=== PATIENT | female | born 1980 | race Caucasian/White ===

== ENCOUNTER 2021-02-06 17:11 | Emergency (ER) | payer OTHER ==
[~2021-02-06] VITALS: Ht 160 cm; Wt 61.4 kg
[2021-02-06 17:27] VITALS: BP 117/49
[2021-02-06] MEDS ORDERED: ALPR0.5T8 PO (17:27)
[2021-02-06] MEDS ORDERED: METH10 PO (17:27)
== END 2021-02-06 18:25 | disposition home or self-care (01) ==
LOC: EMS 17:11
DX: F13.10 Sedative, hypnotic or anxiolytic abuse, uncomplicated (principal); F41.9 Anxiety disorder, unspecified; F17.210 Nicotine dependence, cigarettes, uncomplicated
CPT/HCPCS: 99281; Z7502

== ENCOUNTER 2021-03-03 15:13 | Emergency (ER) | payer MEDICAID, OTHER ==
[~2021-03-03] VITALS: Ht 162.6 cm; Wt 63.6 kg
[~2021-03-03 15:13] MED LIST: ALPR0.5T8 PO; METH10 PO
[2021-03-03 20:47] VITALS: BP 110/62
== END 2021-03-03 20:44 | disposition home or self-care (01) ==
LOC: EMS 15:17
DX: F19.10 Other psychoactive substance abuse, uncomplicated (principal); R30.0 Dysuria; F41.9 Anxiety disorder, unspecified; F17.210 Nicotine dependence, cigarettes, uncomplicated; F11.90 Opioid use, unspecified, uncomplicated
CPT/HCPCS: 51701; 81002; 99282; 99283